=== PATIENT | female | born 1945 | race Caucasian/White ===

== ENCOUNTER 2021-08-13 15:30 | Inpatient (IN) ==
[2021-08-13 21:06] LABS: Basophils % 0.3 %; Eosinophils % 0.3 %; Hemoglobin 11.1 g/dL (11.5-15.4); Immature Granulocytes % 0.4 % (0-4); Lymphocytes # 0.4 K/mcL (0.6-4.6); Lymphocytes % 4.4 %; Mean Corpuscular Hemoglobin 29.9 pg (28.0-33.3); Mean Corpuscular Volume 99.7 fL (83.0-100.0); Mean Platelet Volume 11.8 fL (9.4-12.4); Monocytes # 0.5 K/mcL (0.0-1.3); Monocytes % 5.6 %; Platelet Count 234 K/mcL (140-400); Red Blood Count 3.71 M/mcL (3.82-4.97)
[2021-08-13] MEDS ORDERED: Furosemide 40 MG/4 ML VIAL IVP ONE (21:11)
[2021-08-13 21:24] LABS: Calcium 8.2 mg/dL (8.6-10.3); Potassium 3.6 mEq/L (3.5-5.1)
[2021-08-13 22:11] LABS: Troponin I 0.1 ng/mL (< 0.04)
[2021-08-14 00:10] LABS: Influenza A PCR Negative (Negative); Influenza B PCR Negative (Negative); Resp. Syncytial Virus PCR Negative (Negative)
[2021-08-14 00:15] LABS: SARS-CoV-2 by PCR (In House) Negative (Negative)
[2021-08-14] MEDS ORDERED: Dextrose Gel 15 GM/37.5 ML TUBE PO PRN ×2 (03:42)
[2021-08-14] MEDS ORDERED: D5% in Water 1,000 ML IVC PRN (03:42)
[2021-08-14] MEDS ORDERED: *HR* Dextrose 50 % in Water (Syg) 50 ML SYRINGE IVP PRN (03:42)
[2021-08-14] MEDS ORDERED: diazePAM 5 MG TABLET PO PRN (03:44)
[2021-08-14] MEDS ORDERED: Nitroglycerin 0.4 MG TAB.SUBL SL PRN (03:44)
[2021-08-14] MEDS ORDERED: Naloxone 0.4 MG/ML INJ IVP PRN (03:50)
[2021-08-14] MEDS ORDERED: Ondansetron 4 MG/2 ML VIAL IVP PRN (03:50)
[2021-08-14 04:32] LABS: Hematocrit 31.6 % (35.3-44.9); Hemoglobin 9.8 g/dL (11.5-15.4); Mean Corpuscular Hemoglobin 31.4 pg (28.0-33.3); Mean Corpuscular Volume 101.3 fL (83.0-100.0); Mean Platelet Volume 11.6 fL (9.4-12.4); Platelet Count 212 K/mcL (140-400); Red Blood Count 3.12 M/mcL (3.82-4.97); Red Cell Distribution Width 14.9 % (11.5-14.5); White Blood Count 7.6 K/mcL (4.3-11.1)
[2021-08-14 05:00] LABS: Calcium 7.8 mg/dL (8.6-10.3); Chol/HDL Ratio 2.7 (0-4.9); Magnesium 2.2 mg/dL (1.6-2.6); Potassium 3.4 mEq/L (3.5-5.1)
[2021-08-14 05:03] LABS: Troponin I 0.1 ng/mL (< 0.04)
[2021-08-14 05:16] LABS: INR 1.2; Prothrombin Time 13.2 Seconds (9.4-12.1)
[2021-08-14 05:19] LABS: Activated Partial Thrombo Time 30.9 Seconds (26.0-36.0)
[2021-08-14 05:22] LABS: Folate 5.7 ng/mL (3.0-16.0)
[2021-08-14] MEDS ORDERED: Potassium Chloride Elixir 20 MEQ/15 ML UDC PO ONE (05:26)
[2021-08-14 05:28] LABS: Vitamin B12 > 1500 pg/mL (250-1100)
[2021-08-14 05:29] LABS: Thyroid Stimulating Hormone 4.933 mcIU/mL (0.340-5.600)
[2021-08-14] MEDS: Insulin LISPRO 300 UNITS/3 ML VIAL SUBQ SCH ×5 (05:40→21:06)
[2021-08-14] MEDS: *HR* Heparin 5,000 UNIT/ML VIAL SQ SCH ×3 (05:41→21:07)
[2021-08-14] MEDS: Latanoprost 2.5 ML BOTTLE BOTH EYES SCH ×2 (05:42→21:06)
[2021-08-14] MEDS: DilTIAZem CD (24hr) 120 MG CAP.ER.24H PO SCH (08:46)
[2021-08-14] MEDS: Aspirin Enteric Coated 81 MG Tablet PO SCH (08:46)
[2021-08-14] MEDS: Magnesium Oxide 400 MG TABLET PO SCH (08:46)
[2021-08-14] MEDS: Furosemide 40 MG/4 ML VIAL IVP SCH ×2 (08:46→17:02)
[2021-08-14] MEDS: Metoprolol XL (24 HR) Succ 50 MG TAB.ER.24H PO SCH (08:46)
[2021-08-14] MEDS: hydrALAZINE 25 MG TABLET PO SCH ×3 (08:47→21:06)
[2021-08-14 09:01] LABS: Estimated Average Glucose 108 mg/dl; Hemoglobin A1C 5.4 %
[2021-08-14] MEDS: metOLazone 5 MG TABLET PO SCH (11:54)
[2021-08-14] MEDS: Acetaminophen 325 MG TABLET PO PRN (12:06)
[2021-08-14] MEDS ORDERED: Albumin 25% 12.5gm/50mL 12.5 GM/50 ML IV.SOLN IVPB ONE (15:15)
[2021-08-14] MEDS: Pregabalin 75 MG CAPSULE PO SCH (17:04)
[2021-08-15 01:49] LABS: Hemoglobin 9.9 g/dL (11.5-15.4); Mean Corpuscular HGB Conc 29.1 g/dL (31.6-35.5); Mean Corpuscular Hemoglobin 30.1 pg (28.0-33.3); Mean Corpuscular Volume 103.3 fL (83.0-100.0); Mean Platelet Volume 10.9 fL (9.4-12.4); Platelet Count 206 K/mcL (140-400); Red Blood Count 3.29 M/mcL (3.82-4.97); Red Cell Distribution Width 15.1 % (11.5-14.5); White Blood Count 8.6 K/mcL (4.3-11.1)
[2021-08-15 02:08] LABS: Calcium 8.1 mg/dL (8.6-10.3)
[2021-08-15] MEDS: *HR* Heparin 5,000 UNIT/ML VIAL SQ SCH ×3 (06:44→20:25)
[2021-08-15] MEDS: Insulin LISPRO 300 UNITS/3 ML VIAL SUBQ SCH ×4 (07:34→20:24)
[2021-08-15 08:51] LABS: Uric Acid 11.3 mg/dL (2.3-7.6)
[2021-08-15] MEDS: Pregabalin 75 MG CAPSULE PO SCH (09:37)
[2021-08-15] MEDS: hydrALAZINE 25 MG TABLET PO SCH ×3 (09:38→20:25)
[2021-08-15] MEDS: DilTIAZem CD (24hr) 120 MG CAP.ER.24H PO SCH (09:38)
[2021-08-15] MEDS: metOLazone 5 MG TABLET PO SCH (09:38)
[2021-08-15] MEDS: Aspirin Enteric Coated 81 MG Tablet PO SCH (09:38)
[2021-08-15] MEDS: Magnesium Oxide 400 MG TABLET PO SCH (09:38)
[2021-08-15] MEDS: Metoprolol XL (24 HR) Succ 50 MG TAB.ER.24H PO SCH (09:38)
[2021-08-15] MEDS: Furosemide 40 MG/4 ML VIAL IVP SCH ×2 (09:39→18:27)
[2021-08-15] MEDS: Acetaminophen 325 MG TABLET PO PRN (09:43)
[2021-08-15] MEDS: Albumin 25% 12.5gm/50mL 12.5 GM/50 ML IV.SOLN IVPB SCH (17:10)
[2021-08-15] MEDS: Latanoprost 2.5 ML BOTTLE BOTH EYES SCH (20:26)
[2021-08-16] MEDS: Albumin 25% 12.5gm/50mL 12.5 GM/50 ML IV.SOLN IVPB SCH ×3 (00:37→18:13)
[2021-08-16 03:00] LABS: Basophils % 0.4 %; Eosinophils # 0.1 K/mcL (0.0-0.6); Eosinophils % 0.9 %; Hematocrit 28.9 % (35.3-44.9); Hemoglobin 8.4 g/dL (11.5-15.4); Immature Granulocytes % 0.5 % (0-4); Lymphocytes # 0.3 K/mcL (0.6-4.6); Lymphocytes % 4.1 %; Mean Corpuscular HGB Conc 29.1 g/dL (31.6-35.5); Mean Corpuscular Hemoglobin 30.1 pg (28.0-33.3); Mean Corpuscular Volume 103.6 fL (83.0-100.0); Mean Platelet Volume 11.2 fL (9.4-12.4); Monocytes # 0.6 K/mcL (0.0-1.3); Monocytes % 8.1 %; Neutrophils # 6.5 K/mcL (1.6-8.9); Platelet Count 166 K/mcL (140-400); Red Blood Count 2.79 M/mcL (3.82-4.97); Red Cell Distribution Width 15.2 % (11.5-14.5); White Blood Count 7.5 K/mcL (4.3-11.1)
[2021-08-16 03:15] LABS: Calcium 7.9 mg/dL (8.6-10.3); Magnesium 2.1 mg/dL (1.6-2.6); Phosphorous 3.7 mg/dL (2.7-4.5); Potassium 3.9 mEq/L (3.5-5.1)
[2021-08-16] MEDS: *HR* Heparin 5,000 UNIT/ML VIAL SQ SCH ×3 (07:04→21:34)
[2021-08-16] MEDS: DilTIAZem CD (24hr) 120 MG CAP.ER.24H PO SCH (08:16)
[2021-08-16] MEDS: hydrALAZINE 25 MG TABLET PO SCH ×3 (08:16→21:33)
[2021-08-16] MEDS: Magnesium Oxide 400 MG TABLET PO SCH (08:17)
[2021-08-16] MEDS: Metoprolol XL (24 HR) Succ 50 MG TAB.ER.24H PO SCH (08:17)
[2021-08-16] MEDS: Aspirin Enteric Coated 81 MG Tablet PO SCH (08:18)
[2021-08-16] MEDS: Furosemide 40 MG/4 ML VIAL IVP SCH ×2 (08:18→18:18)
[2021-08-16] MEDS: metOLazone 5 MG TABLET PO SCH (08:18)
[2021-08-16] MEDS: Insulin LISPRO 300 UNITS/3 ML VIAL SUBQ SCH ×4 (08:33→20:03)
[2021-08-16] MEDS: Latanoprost 2.5 ML BOTTLE BOTH EYES SCH (21:34)
[2021-08-17] MEDS: Albumin 25% 12.5gm/50mL 12.5 GM/50 ML IV.SOLN IVPB SCH ×2 (00:57→10:28)
[2021-08-17] MEDS: *HR* Heparin 5,000 UNIT/ML VIAL SQ SCH ×3 (06:02→22:12)
[2021-08-17 06:42] LABS: Basophils % 0.4 %; Eosinophils # 0.1 K/mcL (0.0-0.6); Hematocrit 27.9 % (35.3-44.9); Hemoglobin 8.5 g/dL (11.5-15.4); Immature Granulocytes % 0.4 % (0-4); Lymphocytes # 0.2 K/mcL (0.6-4.6); Lymphocytes % 3.4 %; Mean Corpuscular HGB Conc 30.5 g/dL (31.6-35.5); Mean Corpuscular Hemoglobin 31.1 pg (28.0-33.3); Mean Corpuscular Volume 102.2 fL (83.0-100.0); Mean Platelet Volume 10.6 fL (9.4-12.4); Monocytes # 0.4 K/mcL (0.0-1.3); Monocytes % 6.2 %; Neutrophils # 6.3 K/mcL (1.6-8.9); Platelet Count 152 K/mcL (140-400); Red Blood Count 2.73 M/mcL (3.82-4.97); Red Cell Distribution Width 15.2 % (11.5-14.5); Segmented Neutrophils % 88.6 %; White Blood Count 7.1 K/mcL (4.3-11.1)
[2021-08-17 07:08] LABS: Calcium 8.1 mg/dL (8.6-10.3); Magnesium 2.1 mg/dL (1.6-2.6); Phosphorous 3.8 mg/dL (2.7-4.5); Potassium 3.5 mEq/L (3.5-5.1)
[2021-08-17] MEDS: Insulin LISPRO 300 UNITS/3 ML VIAL SUBQ SCH ×4 (07:43→22:06)
[2021-08-17] MEDS: Aspirin Enteric Coated 81 MG Tablet PO SCH (09:54)
[2021-08-17] MEDS: Magnesium Oxide 400 MG TABLET PO SCH (09:54)
[2021-08-17] MEDS: DilTIAZem CD (24hr) 120 MG CAP.ER.24H PO SCH (09:55)
[2021-08-17] MEDS: Metoprolol XL (24 HR) Succ 50 MG TAB.ER.24H PO SCH (09:55)
[2021-08-17] MEDS: metOLazone 5 MG TABLET PO SCH (09:55)
[2021-08-17] MEDS: hydrALAZINE 25 MG TABLET PO SCH ×3 (09:55→22:12)
[2021-08-17] MEDS: Acetaminophen 325 MG TABLET PO PRN (10:06)
[2021-08-17] MEDS: Furosemide 40 MG/4 ML VIAL IVP SCH ×2 (11:29→18:57)
[2021-08-17] MEDS ORDERED: Albumin 25% 12.5gm/50mL 12.5 GM/50 ML IV.SOLN IVPB SCH (17:00)
[2021-08-17] MEDS: Albumin 25% 25gram/100mL 12.5 GM/50 ML IV.SOLN IVPB SCH (18:54)
[2021-08-17] MEDS: Latanoprost 2.5 ML BOTTLE BOTH EYES SCH (22:13)
[2021-08-18 02:09] LABS: Basophils % 0.4 %; Eosinophils # 0.1 K/mcL (0.0-0.6); Eosinophils % 0.8 %; Hematocrit 28.4 % (35.3-44.9); Hemoglobin 8.7 g/dL (11.5-15.4); Immature Granulocytes % 0.6 % (0-4); Lymphocytes # 0.3 K/mcL (0.6-4.6); Lymphocytes % 4.4 %; Mean Corpuscular HGB Conc 30.6 g/dL (31.6-35.5); Mean Corpuscular Hemoglobin 30.9 pg (28.0-33.3); Mean Corpuscular Volume 100.7 fL (83.0-100.0); Mean Platelet Volume 12.5 fL (9.4-12.4); Monocytes # 0.5 K/mcL (0.0-1.3); Monocytes % 6.6 %; Neutrophils # 6.3 K/mcL (1.6-8.9); Platelet Count 174 K/mcL (140-400); Red Blood Count 2.82 M/mcL (3.82-4.97); Red Cell Distribution Width 14.9 % (11.5-14.5); Segmented Neutrophils % 87.2 %; White Blood Count 7.2 K/mcL (4.3-11.1)
[2021-08-18 02:40] LABS: Magnesium 2.2 mg/dL (1.6-2.6); Phosphorous 3.9 mg/dL (2.7-4.5)
[2021-08-18] MEDS: *HR* Heparin 5,000 UNIT/ML VIAL SQ SCH ×4 (04:57→20:52)
[2021-08-18] MEDS: Furosemide 40 MG/4 ML VIAL IVP SCH ×2 (05:34→18:40)
[2021-08-18] MEDS: Albumin 25% 25gram/100mL 12.5 GM/50 ML IV.SOLN IVPB SCH ×2 (05:34→16:55)
[2021-08-18] MEDS: Insulin LISPRO 300 UNITS/3 ML VIAL SUBQ SCH ×4 (08:36→20:51)
[2021-08-18] MEDS: Magnesium Oxide 400 MG TABLET PO SCH (08:43)
[2021-08-18] MEDS: Aspirin Enteric Coated 81 MG Tablet PO SCH (08:43)
[2021-08-18] MEDS: metOLazone 5 MG TABLET PO SCH (08:43)
[2021-08-18] MEDS: hydrALAZINE 25 MG TABLET PO SCH ×3 (08:43→20:52)
[2021-08-18] MEDS: DilTIAZem CD (24hr) 120 MG CAP.ER.24H PO SCH (08:43)
[2021-08-18] MEDS: Metoprolol XL (24 HR) Succ 50 MG TAB.ER.24H PO SCH (08:43)
[2021-08-18] MEDS: Albumin 25% 12.5gm/50mL 12.5 GM/50 ML IV.SOLN IVPB SCH (09:15)
[2021-08-18] MEDS: Latanoprost 2.5 ML BOTTLE BOTH EYES SCH (20:52)
[2021-08-19 02:31] LABS: Basophils % 0.4 %; Eosinophils # 0.1 K/mcL (0.0-0.6); Eosinophils % 0.7 %; Hemoglobin 9.7 g/dL (11.5-15.4); Immature Granulocytes % 0.4 % (0-4); Lymphocytes # 0.4 K/mcL (0.6-4.6); Lymphocytes % 4.8 %; Mean Corpuscular HGB Conc 31.3 g/dL (31.6-35.5); Mean Corpuscular Hemoglobin 31.6 pg (28.0-33.3); Mean Platelet Volume 12.4 fL (9.4-12.4); Monocytes # 0.5 K/mcL (0.0-1.3); Monocytes % 6.8 %; Neutrophils # 6.5 K/mcL (1.6-8.9); Platelet Count 193 K/mcL (140-400); Red Blood Count 3.07 M/mcL (3.82-4.97); Red Cell Distribution Width 15.1 % (11.5-14.5); Segmented Neutrophils % 86.9 %; White Blood Count 7.5 K/mcL (4.3-11.1)
[2021-08-19 02:53] LABS: Calcium 8.3 mg/dL (8.6-10.3); Magnesium 2.1 mg/dL (1.6-2.6); Phosphorous 3.5 mg/dL (2.7-4.5); Potassium 3.7 mEq/L (3.5-5.1)
[2021-08-19] MEDS: Furosemide 40 MG/4 ML VIAL IVP SCH ×2 (05:40→18:13)
[2021-08-19] MEDS: Albumin 25% 25gram/100mL 12.5 GM/50 ML IV.SOLN IVPB SCH (05:44)
[2021-08-19] MEDS: *HR* Heparin 5,000 UNIT/ML VIAL SQ SCH ×3 (05:48→21:55)
[2021-08-19] MEDS: Insulin LISPRO 300 UNITS/3 ML VIAL SUBQ SCH ×4 (08:06→21:57)
[2021-08-19] MEDS: hydrALAZINE 25 MG TABLET PO SCH ×3 (08:21→21:57)
[2021-08-19] MEDS: metOLazone 5 MG TABLET PO SCH (08:21)
[2021-08-19] MEDS: Magnesium Oxide 400 MG TABLET PO SCH (08:21)
[2021-08-19] MEDS: DilTIAZem CD (24hr) 120 MG CAP.ER.24H PO SCH (08:21)
[2021-08-19] MEDS: Aspirin Enteric Coated 81 MG Tablet PO SCH (08:21)
[2021-08-19] MEDS: Metoprolol XL (24 HR) Succ 50 MG TAB.ER.24H PO SCH (08:21)
[2021-08-19] MEDS: Albumin 25% 12.5gm/50mL 12.5 GM/50 ML IV.SOLN IVPB SCH (17:14)
[2021-08-19] MEDS: Latanoprost 2.5 ML BOTTLE BOTH EYES SCH (21:58)
[2021-08-20 03:11] LABS: Calcium 8.5 mg/dL (8.6-10.3); Magnesium 2.1 mg/dL (1.6-2.6); Phosphorous 3.2 mg/dL (2.7-4.5); Potassium 3.7 mEq/L (3.5-5.1)
[2021-08-20 03:19] LABS: Basophils % 0.4 %; Eosinophils % 0.6 %; Hematocrit 30.7 % (35.3-44.9); Hemoglobin 9.8 g/dL (11.5-15.4); Immature Granulocytes % 0.4 % (0-4); Lymphocytes # 0.4 K/mcL (0.6-4.6); Mean Corpuscular HGB Conc 31.9 g/dL (31.6-35.5); Mean Corpuscular Hemoglobin 31.3 pg (28.0-33.3); Mean Corpuscular Volume 98.1 fL (83.0-100.0); Mean Platelet Volume 11.6 fL (9.4-12.4); Monocytes # 0.5 K/mcL (0.0-1.3); Monocytes % 7.5 %; Neutrophils # 6.2 K/mcL (1.6-8.9); Platelet Count 180 K/mcL (140-400); Red Blood Count 3.13 M/mcL (3.82-4.97); Segmented Neutrophils % 86.1 %; White Blood Count 7.2 K/mcL (4.3-11.1)
[2021-08-20] MEDS: Furosemide 40 MG/4 ML VIAL IVP SCH (05:24)
[2021-08-20] MEDS: Albumin 25% 12.5gm/50mL 12.5 GM/50 ML IV.SOLN IVPB SCH (05:24)
[2021-08-20] MEDS: *HR* Heparin 5,000 UNIT/ML VIAL SQ SCH (05:49)
[2021-08-20 06:40] VITALS: BP 142/60; PULSE 72; TEMP 97.9; O2SAT 91
[2021-08-20] MEDS: Insulin LISPRO 300 UNITS/3 ML VIAL SUBQ SCH (07:40)
[2021-08-20] MEDS: Metoprolol XL (24 HR) Succ 50 MG TAB.ER.24H PO SCH (08:08)
[2021-08-20] MEDS: Aspirin Enteric Coated 81 MG Tablet PO SCH (08:08)
[2021-08-20] MEDS: hydrALAZINE 25 MG TABLET PO SCH (08:08)
[2021-08-20] MEDS: DilTIAZem CD (24hr) 120 MG CAP.ER.24H PO SCH (08:08)
[2021-08-20] MEDS: metOLazone 5 MG TABLET PO SCH (08:08)
[2021-08-20] MEDS: Magnesium Oxide 400 MG TABLET PO SCH (08:08)
== END 2021-08-20 12:47 | disposition home health service (06) | DRG 264 ==
LOC: EMEROOARM 15:30 → 2ANU 15:30 → SUATTDRO 08-15 18:42
PROVIDERS: ADMIT Internal Medicine; ATTEND Hospitalist

== ENCOUNTER 2022-01-13 15:02 | Inpatient (IN) ==
[2022-01-13] MEDS ORDERED: 0.9 % Sodium Chloride 1,000 ML IVC SCH (15:45)
[2022-01-13] MEDS ORDERED: methylPREDNISolone 125 MG/2 ML VIAL IVP ONE (15:53)
[2022-01-13 16:30] LABS: Basophils % 0.1 %; Hematocrit 35.4 % (35.3-44.9); Immature Granulocytes % 0.6 % (0-4); Lymphocytes # 0.1 K/mcL (0.6-4.6); Lymphocytes % 0.8 %; Mean Corpuscular HGB Conc 31.1 g/dL (31.6-35.5); Mean Corpuscular Hemoglobin 31.4 pg (28.0-33.3); Mean Corpuscular Volume 101.1 fL (83.0-100.0); Mean Platelet Volume 12.3 fL (9.4-12.4); Monocytes # 0.6 K/mcL (0.0-1.3); Monocytes % 3.6 %; Neutrophils # 16.5 K/mcL (1.6-8.9); Nucleated Red Blood Cells 0.1 /100 WBC (0); Platelet Count 248 K/mcL (140-400); Red Cell Distribution Width 15.9 % (11.5-14.5); Segmented Neutrophils % 94.9 %; White Blood Count 17.4 K/mcL (4.3-11.1)
[2022-01-13 16:37] LABS: INR 1.4; Prothrombin Time 15.7 Seconds (9.4-12.1)
[2022-01-13 16:37] LABS: VBG Ionized Calcium 0.85 mmol/L (1.15-1.35)
[2022-01-13 17:02] LABS: Bacteria,Urine Few per hpf (None-Few); Bilirubin,Urine Negative (Negative); Blood,Urine Small (Negative); Calcium Oxalate Crystals,Urine Present per hpf; Clarity,Urine Turbid (Clear); Color,Urine Yellow (Yellow); Glucose,Urine (UA) Normal (Normal); Hyaline Casts,Urine Few per lpf (None Seen); Ketones,Urine Negative (Negative); Leukocyte Esterase,Urine Large (Negative); Mucus,Urine Few per lpf (None-Few); Nitrite,Urine Negative (Negative); PH,Urine 5.5 pH Units (5.0-8.0); Protein,Urine 100 mg/dL (Neg-Trace); RBC,Urine 15-30 per hpf (0-3); Specific Gravity,Urine 1.012 (1.010-1.025); Squamous Epithelial Cell,Urine Many per hpf (None-Few); Urobilinogen,Urine Normal (Normal); WBC,Urine TNTC per hpf (0-3)
[2022-01-13 17:16] LABS: Albumin 3.1 g/dL (3.5-5.7); Albumin/Globulin Ratio 0.9 (1.1-2.2); Bilirubin,Total 1.1 mg/dL (0.3-1.0); Calcium 7.5 mg/dL (8.6-10.3); Globulin 3.3 g/dL (2.4-3.5); Magnesium 2.1 mg/dL (1.6-2.6); Phosphorous 7.6 mg/dL (2.7-4.5); Potassium 3.8 mEq/L (3.5-5.1); Thyroid Stimulating Hormone 8.709 mcIU/mL (0.340-5.600); Total Protein 6.4 g/dL (6.4-8.9); Troponin I 5.9 ng/mL (< 0.04)
[2022-01-13] MEDS ORDERED: *HR* Heparin 5,000 UNIT/ML VIAL IVP PRN ×2 (17:48)
[2022-01-13] MEDS ORDERED: *HR* Heparin 5,000 UNIT/ML VIAL IVP ONE (17:48)
[2022-01-13] MEDS ORDERED: Heparin 25,000UNIT/250ML 1/2NS 25,000 UNIT/250 ML IV.SOLN IVC SCH (18:00)
[2022-01-13] MEDS ORDERED: RASBURICASE IV ONE (18:02)
[2022-01-13] MEDS ORDERED: SODIUM CHLORIDE 0.9% IV ONE (18:02)
[2022-01-13 18:39] LABS: Uric Acid 12.1 mg/dL (2.3-7.6)
[2022-01-13] MEDS ORDERED: Ipratropium/Albuterol Neb 3 ML IH PRN (18:43)
[2022-01-13] MEDS ORDERED: levoFLOXacin 750 MG/150 ML 750 MG/150 ML BAG IVPB ONE (18:44)
[2022-01-13 18:50] LABS: Platelet Estimate Normal (Normal)
[2022-01-13] MEDS: Pantoprazole 40 MG VIAL IVP SCH (19:32)
[2022-01-13] MEDS: Albumin 25% 25gram/100mL 25 GM/100 ML IV.SOLN IVC SCH ×2 (20:48→23:27)
[2022-01-13] MEDS ORDERED: allopurinoL 100 MG TABLET PO ONE (21:35)
[2022-01-13] MEDS ORDERED: D5% in Water 1,000 ML IVC PRN (21:36)
[2022-01-13] MEDS ORDERED: Dextrose Gel 15 GM/37.5 ML TUBE PO PRN ×2 (21:36)
[2022-01-13 21:51] LABS: Calcium 7.2 mg/dL (8.6-10.3); Phosphorous 7.4 mg/dL (2.7-4.5); Potassium 3.8 mEq/L (3.5-5.1); Uric Acid 6.7 mg/dL (2.3-7.6)
[2022-01-13] MEDS: Latanoprost 2.5 ML BOTTLE BOTH EYES SCH (23:16)
[2022-01-13] MEDS: Sodium Bicarbonate 150 MEQ in D5% in Water 1,000 ML IVC SCH (23:20)
[2022-01-14] MEDS ORDERED: 0.9 % Sodium Chloride 1,000 ML ONE (00:28)
[2022-01-14] MEDS: Albumin 25% 25gram/100mL 25 GM/100 ML IV.SOLN IVC SCH ×2 (01:22→02:52)
[2022-01-14] MEDS: Nitroglycerin 0.4 MG TAB.SUBL SL ONE ×2 (02:09→02:17)
[2022-01-14] MEDS ORDERED: *HR* LORazepam 2 MG/ML VIAL ONE (02:18)
[2022-01-14] MEDS ORDERED: *HR* LORazepam 2 MG/ML VIAL IVP ONE ×3 (02:28→20:49)
[2022-01-14] MEDS ORDERED: Perflutren Lipid Microsphere 1.3 ML in 0.9 % Sodium Chloride 8.7 ML IVP PRN (06:08)
[2022-01-14 06:36] LABS: A.calcoaceticus-baumannii cplx Not Detected (Not Detect); Bacteroides fragilis by PCR Not Detected (Not Detect); Candida albicans by PCR Not Detected (Not Detect); Candida auris by PCR Not Detected (Not Detect); Candida glabrata by PCR Not Detected (Not Detect); Candida krusei by PCR Not Detected (Not Detect); Candida parapsilosis by PCR Not Detected (Not Detect); Candida tropicalis by PCR Not Detected (Not Detect); Crypto. neoformans/gattii PCR Not Detected (Not Detect); Enterobacter cloacae Cmplx PCR Not Detected (Not Detect); Enterobacterales by PCR Not Detected (Not Detect); Enterococcus faecalis by PCR DETECTED (Not Detect); Enterococcus faecium by PCR Not Detected (Not Detect); Escherichia coli by PCR Not Detected (Not Detect); Klebs. pneumoniae group by PCR Not Detected (Not Detect); Klebsiella aerogenes by PCR Not Detected (Not Detect); Klebsiella oxytoca by PCR Not Detected (Not Detect); Proteus by PCR Not Detected (Not Detect); Pseudomonas aeruginosa by PCR Not Detected (Not Detect); Salmonella species by PCR Not Detected (Not Detect); Serratia marcescens by PCR Not Detected (Not Detect); Staph epidermidis by PCR Not Detected (Not Detect); Staph lugdunensis by PCR Not Detected (Not Detect); Staphylococcus aureus by PCR Not Detected (Not Detect); Staphylococcus by PCR Not Detected (Not Detect); Stenotrophomonas maltophilia Not Detected (Not Detect); Streptococcus agalactiae(B)PCR Not Detected (Not Detect); Streptococcus by PCR Not Detected (Not Detect); Streptococcus pneumoniae PCR Not Detected (Not Detect); Streptococcus pyogenes (A) PCR Not Detected (Not Detect); vanA/B Vancomycin-Resist Genes Not Detected (Not Detect)
[2022-01-14] MEDS: Pantoprazole 40 MG VIAL IVP SCH (08:40)
[2022-01-14] MEDS ORDERED: Metoprolol XL (24 HR) Succ 50 MG TAB.ER.24H PO SCH (09:00)
[2022-01-14 10:51] LABS: INR 1.8; Prothrombin Time 20.1 Seconds (9.4-12.1)
[2022-01-14] MEDS: Insulin LISPRO 300 UNITS/3 ML VIAL SUBQ SCH ×3 (10:58→21:36)
[2022-01-14 11:13] LABS: Red Cell Distribution Width 15.7 % (11.5-14.5)
[2022-01-14 11:15] LABS: Hematocrit 30.7 % (35.3-44.9); Hemoglobin 9.4 g/dL (11.5-15.4); Immature Platelets 5.3 % (1.1-6.1); Mean Corpuscular HGB Conc 30.6 g/dL (31.6-35.5); Mean Corpuscular Hemoglobin 31.1 pg (28.0-33.3); Mean Corpuscular Volume 101.7 fL (83.0-100.0); Mean Platelet Volume 12.5 fL (9.4-12.4); Platelet Count 130 K/mcL (140-400); Red Blood Count 3.02 M/mcL (3.82-4.97); White Blood Count 9.3 K/mcL (4.3-11.1)
[2022-01-14 11:41] LABS: Calcium 7.4 mg/dL (8.6-10.3); Magnesium 2.1 mg/dL (1.6-2.6); Phosphorous 8.2 mg/dL (2.7-4.5); Potassium 4.1 mEq/L (3.5-5.1); Uric Acid 1.8 mg/dL (2.3-7.6)
[2022-01-14 14:22] LABS: Lymphocytes # 0.2 K/mcL (0.6-4.6); Neutrophils # 9.1 K/mcL (1.6-8.9)
[2022-01-14 14:25] LABS: Anisocytosis 1+ (Not Present)
[2022-01-14 14:26] LABS: Platelet Estimate Slight Decrease (Normal); Poikilocytosis 1+ (Not Present)
[2022-01-14 15:14] LABS: Creatinine,Urine 74 mg/dL; Microalbumin,Urine > 1350 mg/L; Protein/Creatinine Ratio,Urine 2.53 mg/mg (0.00-0.20); Sodium, Urine 12.4 mEq/L
[2022-01-14] MEDS: *HR* Heparin 5,000 UNIT/ML VIAL SQ SCH ×2 (17:21→21:29)
[2022-01-14] MEDS ORDERED: Gentamicin 270 MG in 0.9 % Sodium Chloride 100 ML IVPB SCH (18:00)
[2022-01-14] MEDS: Sodium Bicarbonate 150 MEQ in D5% in Water 1,000 ML IVC SCH (19:00)
[2022-01-14] MEDS ORDERED: levoFLOXacin 500 MG/100 ML 500 MG/100 ML BAG IVPB SCH (21:00)
[2022-01-14] MEDS: DAPTOmycin 450 MG in 0.9 % Sodium Chloride 100 ML IVPB SCH (21:28)
[2022-01-14] MEDS: Aspirin Enteric Coated 81 MG Tablet PO SCH (21:29)
[2022-01-14] MEDS: Latanoprost 2.5 ML BOTTLE BOTH EYES SCH (21:30)
[2022-01-15 04:47] LABS: Albumin 3.7 g/dL (3.5-5.7); Calcium 7.7 mg/dL (8.6-10.3); Phosphorous 9.2 mg/dL (2.7-4.5); Potassium 3.9 mEq/L (3.5-5.1)
[2022-01-15 05:02] LABS: Hepatitis B Surface Antigen Nonreactive (Nonreactive)
[2022-01-15 05:31] LABS: Hepatitis A Antibody IgM Nonreactive (Nonreactive); Hepatitis B Core IgM Nonreactive (Nonreactive); Hepatitis C Virus Antibody Nonreactive (Nonreactive)
[2022-01-15] MEDS: Norepinephrine 4 MG/254 ML IV.SOLN IVC SCH ×2 (05:51→13:29)
[2022-01-15] MEDS: *HR* Heparin 5,000 UNIT/ML VIAL SQ SCH ×3 (05:52→23:07)
[2022-01-15] MEDS: Insulin LISPRO 300 UNITS/3 ML VIAL SUBQ SCH ×3 (08:07→16:21)
[2022-01-15] MEDS: Pantoprazole 40 MG VIAL IVP SCH (08:10)
[2022-01-15] MEDS: *HR* Dextrose 50 % in Water (Syg) 50 ML SYRINGE IVP PRN ×4 (08:10→16:49)
[2022-01-15 08:58] LABS: Basophils % 0.1 %; Hematocrit 29.9 % (35.3-44.9); Hemoglobin 9.2 g/dL (11.5-15.4); Immature Granulocytes % 0.5 % (0-4); Immature Platelets 7.5 % (1.1-6.1); Lymphocytes # 0.2 K/mcL (0.6-4.6); Lymphocytes % 1.1 %; Mean Corpuscular HGB Conc 30.8 g/dL (31.6-35.5); Mean Corpuscular Hemoglobin 31.6 pg (28.0-33.3); Mean Corpuscular Volume 102.7 fL (83.0-100.0); Monocytes # 0.5 K/mcL (0.0-1.3); Monocytes % 3.4 %; Neutrophils # 12.8 K/mcL (1.6-8.9); Nucleated Red Blood Cells 0.4 /100 WBC (0); Platelet Count 122 K/mcL (140-400); Red Blood Count 2.91 M/mcL (3.82-4.97); Red Cell Distribution Width 15.9 % (11.5-14.5); Segmented Neutrophils % 94.9 %; White Blood Count 13.5 K/mcL (4.3-11.1)
[2022-01-15 09:13] LABS: Anisocytosis 1+ (Not Present); Poikilocytosis 1+ (Not Present)
[2022-01-15 09:14] LABS: Platelet Estimate Normal (Normal); Schistocytes 1+ (Not Present)
[2022-01-15] MEDS ORDERED: Sodium Bicarbonate 150 MEQ in D5% in Water 1,000 ML IVC PRN (12:54)
[2022-01-15] MEDS: Sodium Bicarbonate 150 MEQ in D5% in Water 1,000 ML IVC SCH (13:36)
[2022-01-15 13:54] LABS: Lactate Dehydrogenase 1140 Units/L (140-271); Total Protein 5.8 g/dL (6.4-8.9)
[2022-01-15 15:10] LABS: RBC,Pleural Fluid < 2000 RBC/mcL
[2022-01-15 15:36] LABS: Basophils,Pleural Fluid 0 %; Eosinophils,Pleural Fluid 0 %
[2022-01-15 15:39] LABS: Appearance of Pleural Fl Clear (Clear)
[2022-01-15 15:46] LABS: Glucose,Pleural Fluid 194 mg/dL (No Ref Range); LDH,Pleural Fluid 117 Units/L (No Ref Range); Total Protein,Pleural Fluid < 2.0 g/dL
[2022-01-15] MEDS: Calcium Acetate 667 MG CAPSULE PO SCH (16:21)
[2022-01-15] MEDS: D10% in Water 500 ML IVC SCH (18:22)
[2022-01-15] MEDS ORDERED: levoFLOXacin 750 MG/150 ML 750 MG/150 ML BAG IVPB SCH (19:00)
[2022-01-15] MEDS ORDERED: levoFLOXacin 500 MG/100 ML 500 MG/100 ML BAG IVPB SCH (21:00)
[2022-01-15] MEDS: Aspirin Enteric Coated 81 MG Tablet PO SCH (21:58)
[2022-01-15] MEDS: Latanoprost 2.5 ML BOTTLE BOTH EYES SCH (23:07)
[2022-01-16] MEDS: D10% in Water 500 ML IVC SCH ×3 (03:36→21:46)
[2022-01-16] MEDS: Sodium Bicarbonate 150 MEQ in D5% in Water 1,000 ML IVC SCH (03:36)
[2022-01-16 03:46] LABS: Basophils % 0.1 %; Monocytes # 0.4 K/mcL (0.0-1.3); Monocytes % 3.2 %; White Blood Count 12.1 K/mcL (4.3-11.1)
[2022-01-16 03:48] LABS: Hematocrit 30.5 % (35.3-44.9); Hemoglobin 9.7 g/dL (11.5-15.4); Immature Granulocytes % 0.6 % (0-4); Immature Platelets 9.7 % (1.1-6.1); Lymphocytes # 0.1 K/mcL (0.6-4.6); Lymphocytes % 1.1 %; Mean Corpuscular HGB Conc 31.8 g/dL (31.6-35.5); Mean Corpuscular Volume 100.7 fL (83.0-100.0); Neutrophils # 11.5 K/mcL (1.6-8.9); Nucleated Red Blood Cells 0.7 /100 WBC (0); Red Blood Count 3.03 M/mcL (3.82-4.97); Red Cell Distribution Width 15.6 % (11.5-14.5)
[2022-01-16 03:57] LABS: VBG Ionized Calcium 0.87 mmol/L (1.15-1.35)
[2022-01-16 04:10] LABS: Platelet Count 97 K/mcL (140-400)
[2022-01-16 04:11] LABS: Platelet Estimate Slight Decrease (Normal); Poikilocytosis 1+ (Not Present)
[2022-01-16 04:18] LABS: Albumin 3.2 g/dL (3.5-5.7); Calcium 7.6 mg/dL (8.6-10.3); Phosphorous 8.6 mg/dL (2.7-4.5)
[2022-01-16 04:23] LABS: Albumin 3.3 g/dL (3.5-5.7); Albumin/Globulin Ratio 1.5 (1.1-2.2); Bilirubin,Total 2.8 mg/dL (0.3-1.0); Calcium 7.7 mg/dL (8.6-10.3); Globulin 2.2 g/dL (2.4-3.5); Magnesium 2.1 mg/dL (1.6-2.6); Total Protein 5.5 g/dL (6.4-8.9); Troponin I 6.62 ng/mL (< 0.04)
[2022-01-16 05:20] VITALS: PULSE 70
[2022-01-16] MEDS: *HR* Heparin 5,000 UNIT/ML VIAL SQ SCH ×3 (05:51→21:06)
[2022-01-16] MEDS ORDERED: Furosemide 40 MG/4 ML VIAL IVP ONE (07:53)
[2022-01-16] MEDS: Pantoprazole 40 MG VIAL IVP SCH (07:55)
[2022-01-16] MEDS: Calcium Acetate 667 MG CAPSULE PO SCH ×3 (07:55→15:46)
[2022-01-16] MEDS: Insulin LISPRO 300 UNITS/3 ML VIAL SUBQ SCH ×3 (09:20→16:58)
[2022-01-16] MEDS: DAPTOmycin 450 MG in 0.9 % Sodium Chloride 100 ML IVPB SCH (19:52)
[2022-01-16] MEDS: Latanoprost 2.5 ML BOTTLE BOTH EYES SCH (21:06)
[2022-01-16] MEDS: Aspirin Enteric Coated 81 MG Tablet PO SCH (21:06)
[2022-01-17 04:11] LABS: Hematocrit 28.4 % (35.3-44.9); Hemoglobin 8.8 g/dL (11.5-15.4); Immature Platelets 10.3 % (1.1-6.1); Mean Corpuscular Hemoglobin 30.9 pg (28.0-33.3); Mean Corpuscular Volume 99.6 fL (83.0-100.0); Platelet Count 68 K/mcL (140-400); Red Blood Count 2.85 M/mcL (3.82-4.97); Red Cell Distribution Width 15.8 % (11.5-14.5); White Blood Count 9.6 K/mcL (4.3-11.1)
[2022-01-17 04:39] LABS: Potassium 3.6 mEq/L (3.5-5.1)
[2022-01-17] MEDS: *HR* Heparin 5,000 UNIT/ML VIAL SQ SCH ×3 (05:23→20:26)
[2022-01-17] MEDS: Pantoprazole 40 MG VIAL IVP SCH (08:43)
[2022-01-17] MEDS: Calcium Acetate 667 MG CAPSULE PO SCH ×3 (08:58→18:00)
[2022-01-17] MEDS: Insulin LISPRO 300 UNITS/3 ML VIAL SUBQ SCH ×3 (09:57→16:35)
[2022-01-17] MEDS: D10% in Water 500 ML IVC SCH ×3 (16:35→22:43)
[2022-01-17] MEDS ORDERED: Ketorolac 30 MG/ML VIAL IVP STA (19:49)
[2022-01-17] MEDS ORDERED: Cyanocobalamin (B-12) 1,000 MCG TABLET PO SCH (20:00)
[2022-01-17] MEDS: Latanoprost 2.5 ML BOTTLE BOTH EYES SCH (20:26)
[2022-01-17] MEDS: Aspirin Enteric Coated 81 MG Tablet PO SCH (20:27)
[2022-01-18] MEDS: diazePAM 5 MG TABLET PO PRN ×2 (00:07→12:51)
[2022-01-18 04:03] LABS: Basophils % 0.1 %; Hemoglobin 8.9 g/dL (11.5-15.4); Immature Granulocytes % 0.4 % (0-4); Immature Platelets 9.8 % (1.1-6.1); Lymphocytes # 0.2 K/mcL (0.6-4.6); Lymphocytes % 1.7 %; Mean Corpuscular HGB Conc 30.7 g/dL (31.6-35.5); Mean Corpuscular Hemoglobin 31.1 pg (28.0-33.3); Mean Corpuscular Volume 101.4 fL (83.0-100.0); Monocytes # 0.4 K/mcL (0.0-1.3); Neutrophils # 8.4 K/mcL (1.6-8.9); Nucleated Red Blood Cells 0.4 /100 WBC (0); Platelet Count 68 K/mcL (140-400); Red Blood Count 2.86 M/mcL (3.82-4.97); Red Cell Distribution Width 16.1 % (11.5-14.5); Segmented Neutrophils % 93.8 %
[2022-01-18 04:08] LABS: INR 1.8; Prothrombin Time 19.5 Seconds (9.4-12.1)
[2022-01-18 04:18] LABS: Rheumatoid Factor < 10 IU/mL (Less than 14)
[2022-01-18 04:36] LABS: Albumin 2.9 g/dL (3.5-5.7); Albumin/Globulin Ratio 1.5 (1.1-2.2); Bilirubin,Total 1.6 mg/dL (0.3-1.0); Calcium 7.4 mg/dL (8.6-10.3); Potassium 3.7 mEq/L (3.5-5.1); Total Protein 4.9 g/dL (6.4-8.9)
[2022-01-18 04:49] LABS: Hepatitis B Surface Antibody < 3.10 mIU/mL
[2022-01-18 05:00] LABS: Hepatitis B Surface Antigen Nonreactive (Nonreactive)
[2022-01-18] MEDS: *HR* Heparin 5,000 UNIT/ML VIAL SQ SCH ×2 (06:09→14:29)
[2022-01-18] MEDS: Pantoprazole 40 MG VIAL IVP SCH (09:14)
[2022-01-18] MEDS: Insulin LISPRO 300 UNITS/3 ML VIAL SUBQ SCH ×3 (09:14→17:09)
[2022-01-18] MEDS: Calcium Acetate 667 MG CAPSULE PO SCH (09:14)
[2022-01-18] MEDS: D10% in Water 500 ML IVC SCH (16:13)
[2022-01-18 17:08] VITALS: BP 98/30; O2SAT 100
[2022-01-18 17:38] VITALS: TEMP 98.6
== END 2022-01-18 18:45 | disposition hospice, home (50) | DRG 871 ==
LOC: EMEROOARM 15:02 → 2ANU 15:02 → 2NENU 19:43 → ICNU 01-14 12:29
PROVIDERS: ADMIT Internal Medicine; ATTEND Internal Medicine